=== PATIENT | female | born 1980 | race African-American/Black ===

== ENCOUNTER 2017-06-09 05:16 | Inpatient (IN) ==
[2017-06-04 13:34] LABS: Basophils # 0.1 10*3/uL (0.0-0.2); Basophils % 0.6 % (0.0-0.8); Eosinophils # 0.3 10*3/uL (0.0-0.87); Eosinophils % 3.6 % (0.00-10.9); Hematocrit 34.6 VOL% (35.7-47.0); Hemoglobin 11.5 GM/DL (12.0-16.0); Immature Granulocytes % 0.5 %; Immature Granulocytes Absolute 0.04 #; Lymphocytes # 2.5 10*3/uL (1.4-4.0); Lymphocytes % 31.5 % (21.3-54.2); Mean Corpuscular HGB Conc 33.2 GM/DL (32-36); Mean Corpuscular Hemoglobin 30 PG (27-34); Mean Corpuscular Volume 91.1 FL (87-102); Mean Platelet Volume 9.6 FL (9.6-12.0); Monocytes # 0.6 10*3/uL (0.11-0.8); Monocytes % 7.2 % (1.7-12.7); Neutrophils # 4.5 10*3/uL (1.4-7.4); Neutrophils % 56.6 % (38.7-73.9); Platelet Count 345 T/CUMM (130-400); Red Cell Distribution Width 12.9 % (9.3-17.3)
[2017-06-04 13:38] LABS: PT Patient Result 10.3 SECS; Partial Thromboplastin Time 26.1 SECS (0-40)
[2017-06-04 14:04] LABS: Apearance,Urine Slightly Hazy (Clear); Bacteria,Urine Occasional /HPF (Few); Bilirubin,Urine Negative (Negative); Blood, Urine Negative (Negative); Glucose,Urine (UA) Negative (Negative); Ketones,Urine Negative (Negative); Mucus,Urine Moderate /LPF (Occasional); Nitrite,Urine Negative (Negative); Protein,Urine Negative; RBC,Urine 1 /HPF (0-4); Squamous Epithelial Cell,Urine Few /HPF (0-10); Urine Color Yellow (Yellow); Urine Specific Gravity 1.024 (1.001-1.035); Urine Urobilinogen < 2.0 EU/DL (0.2-1.0); WBC,Urine 1 /HPF (0-6)
[2017-06-04 14:31] LABS: Potassium 3.9 MMOL/L (3.5-5.1); Sodium 137 MMOL/L (136-145)
[2017-06-04 14:33] LABS: Calcium 9.1 MG/DL (8.5-10.1)
[2017-06-04 14:34] LABS: Albumin 3.7 G/DL (3.4-5.0); Blood Urea Nitrogen 9 MG/DL (7-18); Glucose 81 MG/DL (74-106); Osmolality,Calculated 270.8 MOS/KG (273-304)
[2017-06-04 14:37] LABS: Alanine Aminotransferase 36 U/L (13-56); Aspartate Amino Transferase 29 U/L (0-37)
[2017-06-04 14:39] LABS: Bilirubin,Total < 0.39 MG/DL (0.2-1.0); Total Protein 7.7 G/DL (6.4-8.3)
[2017-06-04 14:40] LABS: Alkaline Phosphatase 97 U/L (45-117)
[2017-06-09] MEDS ORDERED: VANCOMYCIN INJ 1,000 MG in SODIUM CHLORIDE 0.9% 250 ML IV ONE ×2 (06:00→22:00)
[2017-06-09] MEDS ORDERED: FAMOTIDINE 20 MG TABLET PO ONE (06:26)
[2017-06-09] MEDS ORDERED: LORazepam 1 MG TABLET PO ONE (06:26)
[2017-06-09] MEDS ORDERED: LACTATED RINGERS 1,000 ML IV SCH (07:00)
[2017-06-09] MEDS ORDERED: VANCOMYCIN 1,000 MG VIAL ONE (07:14)
[2017-06-09] MEDS ORDERED: ceFAZolin 1,000 MG VIAL ONE ×2 (07:14→10:51)
[2017-06-09] MEDS ORDERED: LORazepam 1 MG TABLET ONE (07:14)
[2017-06-09] MEDS ORDERED: FAMOTIDINE 20 MG TABLET ONE (07:15)
[2017-06-09] MEDS ORDERED: PROPOFOL 1,000 MG/100 ML BOTTLE IV ONE (08:58)
[2017-06-09] MEDS ORDERED: MORPHINE 10 MG/10 ML VIAL ONE (08:58)
[2017-06-09] MEDS ORDERED: ALPRAZolam 0.5 MG TABLET PO PRN (10:35)
[2017-06-09] MEDS ORDERED: diphenhydrAMINE CAP 25 MG CAPSULE PO PRN (10:36)
[2017-06-09] MEDS ORDERED: oxyCODONE IR 5 MG TABLET PO PRN ×2 (10:36)
[2017-06-09] MEDS ORDERED: HYDROmorphone 2 MG/1 ML VIAL IV PRN ×2 (10:36)
[2017-06-09] MEDS ORDERED: ONDANSETRON 4 MG/2 ML VIAL IV PRN (10:36)
[2017-06-09] MEDS ORDERED: TRANEXAMIC ACID 1,000 MG/10 ML VIAL IV ONE (10:51)
[2017-06-09] MEDS ORDERED: BACITRACIN OINT 0.9 GM PACK TOP ONE (10:51)
[2017-06-09 11:30] LABS: Apearance,Urine CLEAR (Clear); Bacteria,Urine Occasional /HPF (Few); Bilirubin,Urine Negative (Negative); Blood, Urine Negative (Negative); Glucose,Urine (UA) Negative (Negative); Ketones,Urine Negative (Negative); Mucus,Urine Occasional /LPF (Occasional); Nitrite,Urine Negative (Negative); Protein,Urine Negative; Squamous Epithelial Cell,Urine Occasional /HPF (0-10); Urine Color Yellow (Yellow); Urine Specific Gravity 1.024 (1.001-1.035)
[2017-06-09] MEDS ORDERED: MIDAZOLAM 2 MG/2 ML VIAL ONE ×2 (12:09→12:18)
[2017-06-09] MEDS ORDERED: fentaNYL 100 MCG/2 ML VIAL ONE (12:18)
[2017-06-09] MEDS ORDERED: KETOROLAC 30 MG/1 ML VIAL ONE (12:19)
[2017-06-09] MEDS ORDERED: LACTATED RINGERS 1,000 ML IV ONE (12:19)
[2017-06-09] MEDS ORDERED: ONDANSETRON 4 MG/2 ML VIAL ONE (12:19)
[2017-06-09] MEDS ORDERED: DEXAMETHASONE 10 MG/1 ML VIAL ONE (12:19)
[2017-06-09] MEDS: KETOROLAC 30 MG/1 ML VIAL IV SCH ×3 (16:00→22:26)
[2017-06-09] MEDS: ACETAMINOPHEN 500 MG TABLET PO SCH ×2 (16:01→21:10)
[2017-06-09] MEDS: LACTATED RINGERS 1,000 ML IV SCH (16:11)
[2017-06-09] MEDS: ceFAZolin 2,000 MG in PREMIX 1 EACH IV SCH (19:21)
[2017-06-09] MEDS: DOCUSATE SODIUM 100 MG CAPSULE PO SCH (21:10)
[2017-06-10] MEDS: ceFAZolin 2,000 MG in PREMIX 1 EACH IV SCH (01:14)
[2017-06-10 09:55] LABS: Calcium 8.5 MG/DL (8.5-10.1); Osmolality,Calculated 276.7 MOS/KG (273-304); Potassium 4.2 MMOL/L (3.5-5.1)
[2017-06-10 10:00] LABS: Basophils % 0.1 % (0.0-0.8); Hemoglobin 9.3 GM/DL (12.0-16.0); Immature Granulocytes % 0.6 %; Immature Granulocytes Absolute 0.09 #; Mean Corpuscular HGB Conc 33.2 GM/DL (32-36); Mean Corpuscular Hemoglobin 31 PG (27-34); Mean Platelet Volume 9.7 FL (9.6-12.0); Monocytes # 1.1 10*3/uL (0.11-0.8); Monocytes % 7.6 % (1.7-12.7); Neutrophils # 12.4 10*3/uL (1.4-7.4); Neutrophils % 84.7 % (38.7-73.9); Platelet Count 299 T/CUMM (130-400); Red Blood Count 3.01 MC/CUMM (3.8-5.5); Red Cell Distribution Width 13.1 % (9.3-17.3); White Blood Count 14.7 T/CUMM (4-12)
[2017-06-10] MEDS: ACETAMINOPHEN 500 MG TABLET PO SCH ×2 (10:18→10:21)
[2017-06-10] MEDS: LACTATED RINGERS 1,000 ML IV SCH ×2 (10:20→17:40)
[2017-06-10] MEDS: DOCUSATE SODIUM 100 MG CAPSULE PO SCH ×2 (10:24→20:29)
[2017-06-10] MEDS ORDERED: MAGNESIUM HYDROXIDE SUSP 30 ML UDCUP PO PRN (10:30)
[2017-06-10] MEDS: KETOROLAC 30 MG/1 ML VIAL IV SCH (11:01)
[2017-06-10] MEDS: FONDAPARINUX 2.5 MG/0.5 ML SYRINGE SUBCUT SCH (12:34)
[2017-06-10] MEDS: CELECOXIB 200 MG CAPSULE PO SCH (16:45)
[2017-06-11 05:43] LABS: Basophils % 0.3 % (0.0-0.8); Eosinophils # 0.1 10*3/uL (0.0-0.87); Eosinophils % 0.5 % (0.00-10.9); Hematocrit 26.1 VOL% (35.7-47.0); Hemoglobin 8.7 GM/DL (12.0-16.0); Immature Granulocytes % 0.7 %; Immature Granulocytes Absolute 0.07 #; Lymphocytes # 2.8 10*3/uL (1.4-4.0); Lymphocytes % 29.9 % (21.3-54.2); Mean Corpuscular HGB Conc 33.3 GM/DL (32-36); Mean Corpuscular Hemoglobin 31 PG (27-34); Mean Corpuscular Volume 92.9 FL (87-102); Mean Platelet Volume 9.9 FL (9.6-12.0); Monocytes # 0.8 10*3/uL (0.11-0.8); Monocytes % 8.8 % (1.7-12.7); Neutrophils # 5.6 10*3/uL (1.4-7.4); Neutrophils % 59.8 % (38.7-73.9); Platelet Count 278 T/CUMM (130-400); Red Blood Count 2.81 MC/CUMM (3.8-5.5); Red Cell Distribution Width 13.3 % (9.3-17.3); White Blood Count 9.4 T/CUMM (4-12)
[2017-06-11] MEDS: DOCUSATE SODIUM 100 MG CAPSULE PO SCH (08:54)
[2017-06-11] MEDS: CELECOXIB 200 MG CAPSULE PO SCH (08:54)
[2017-06-11] MEDS: FONDAPARINUX 2.5 MG/0.5 ML SYRINGE SUBCUT SCH (12:17)
== END 2017-06-11 15:00 | disposition home or self-care (01) | DRG 301 ==
LOC: N.SDSINP 05:16 → N.3E 14:51
PROVIDERS: ADMIT Orthopaedic Surgery; ATTEND Orthopaedic Surgery